=== PATIENT | male | born 1990 | race Caucasian/White ===

== ENCOUNTER 2017-05-18 13:07 | Emergency (ER) | payer MEDICAID ==
[2017-05-18 14:23] VITALS: BP 132/76
== END 2017-05-18 14:23 | disposition home or self-care (01) ==
LOC: ED 13:07
DX: S82.832A Other fracture of upper and lower end of left fibula, initial encounter for closed fracture (principal); X58.XXXA Exposure to other specified factors, initial encounter; Y93.89 Activity, other specified; Y99.8 Other external cause status; Y92.89 Other specified places as the place of occurrence of the external cause

== ENCOUNTER 2017-09-28 16:31 | Emergency (ER) | payer OTHER ==
[~2017-09-28] VITALS: Ht 170.2 cm; Wt 91.6 kg
[2017-09-28 16:48] VITALS: Ht 170.2 cm; Wt 91.6 kg
[2017-09-28 18:27] LABS: microscopic required? NO
[2017-09-28 18:31] VITALS: BP 148/79
[2017-09-28 18:43] LABS: UA SPECIFIC GRAVITY >=1.030 (1.005-1.035); urine erythrocyte NEGATIVE (NEGATIVE)
== END 2017-09-28 18:59 | disposition left against medical advice (07) ==
LOC: ED 16:31
DX: Z53.21 Procedure and treatment not carried out due to patient leaving prior to being seen by health care provider (principal)

== ENCOUNTER 2020-04-27 06:51 | Emergency (ER) | payer OTHER ==
[~2020-04-27] VITALS: Ht 170.2 cm; Wt 94.3 kg
[2020-04-27 06:57] VITALS: BP 118/82; Ht 170.2 cm; Wt 94.3 kg
== END 2020-04-27 07:57 | disposition home or self-care (01) ==
LOC: ED 06:51
DX: M54.5 Low back pain (principal); B35.2 Tinea manuum
CPT/HCPCS: J1885